=== PATIENT | male | born 1950 | race Caucasian/White ===

== ENCOUNTER 2022-07-16 09:39 | Outpatient (CLI) | payer MEDICARE, SELFPAY ==
[2022-07-16 14:50] LABS: Chloride* 102 mmol/L (96-114); Potassium* 4.6 mmol/L (3.6-5.1); Sodium* 138 mmol/L (135-149)
[2022-07-16 14:52] LABS: Cholesterol* 181 mg/dL (90-199); Creatinine* 0.7 mg/dL (0.5-1.5); Estimated Glomerular Filt Rate 100 ml/min
[2022-07-16 14:53] LABS: Blood Urea Nitrogen* 11 mg/dL (7-30); Calcium* 9.9 mg/dL (8.4-10.6); Carbon Dioxide* 29 mmol/L (20-32); Glucose* 116 mg/dL (60-115); Triglycerides* 117 mg/dL (40-149)
[2022-07-16 14:54] LABS: HDL Cholesterol* 63 mg/dL (>=40); LDL Cholesterol Calculated 95 mg/dL (<100)
[2022-07-16 15:23] LABS: PSA Screen* 0.66 ng/mL (0.10-4.00)
== END 2022-07-16 09:40 | disposition home or self-care (01) ==
PROVIDERS: PCP Family Medicine; Visit Provider Family Medicine
DX: Z00.00 Encounter for general adult medical examination without abnormal findings (principal); I10 Essential (primary) hypertension; E78.5 Hyperlipidemia, unspecified; Z12.5 Encounter for screening for malignant neoplasm of prostate
CPT/HCPCS: 80048; 80061; 84153

== ENCOUNTER 2023-06-14 07:37 | Outpatient (CLI) | payer MEDICARE, SELFPAY | END 2023-06-14 07:38 | disposition home or self-care (01) | LOC: AMB 06-16 01:36 | PROVIDERS: PCP Family Medicine; Visit Provider Internal Medicine | DX: R42 Dizziness and giddiness (principal); F12.10 Cannabis abuse, uncomplicated | CPT/HCPCS: A0425; A0427 ==

== ENCOUNTER 2023-06-14 08:15 | Emergency (ER) | payer MEDICARE, SELFPAY ==
[2023-06-14] VITALS (7 sets, daily range): BP systolic 126–136; BP diastolic 63–73; PULSE 63–99; RESP 16–18; TEMP 36.2; O2SAT 99–100
--- NOTE | 2023-06-14 08:32 | ED.GENADULT ---
HPI - General Adult General Time Seen by Provider: 08:32 Date Seen: 06/14/23 Chief complaint: Dizziness/Vertigo Stated complaint: overdose Time Seen by Provider: 06/14/23 08:30 History of Present Illness HPI narrative: This is a pleasant 72-year-old male with a history of hypertension dyslipidemia brought to the ER today by EMS for hypotension, dizziness, syncope, and probable THC overdose. History from paramedics is that yesterday afternoon / evening he was golfing with friends and did consume some alcohol. He had perhaps 6 alcoholic beverages, which is more than normal for him, and also two THC gummies (paramedics report each gummy was 250 mg- totaling 500 mg. Later, after the patient's arrived, she brought the bottle of gummies. Labeling is a bit unclear, but we think each come the probably contains 12.5 mg of delta 9 THC, therefore ingestion would have been 25 mg, not 500. According to an Internet search, it looks like each, contains 12.5 mg for a total of 250 mg in the bottle). at this point we believe he ingested 25 mg of delta 9 THC Yesterday evening. When the patient got up this morning he was feeling unsteady. He was sitting on a counter and apparently slumped over. He was held up by his family. He did not fall. He did not have any chest pain, headache, focal neurologic symptoms. He was just dizzy and unsteady. He was hypotensive when paramedics 1st arrived at 80s/ 50s. he was pale, mildly sweaty. No other complaints. They established an IV and if administered part of a 5 her mg saline bolus. Subsequent blood pressures have come up to normal up to 113/60. He is Now pinker and looking better. He still has no complaints. History from the patient corroborates. Yesterday he had friends from out of town visiting. They were celebrating. He was golfing. He did have about 6 beers which is more than he would normally consume. He did take 2 gummies, which he got from his son-in-law. It he recalls feeling fairly intoxicated when he went to bed last night. He was not drinking much water. He thinks he slept well. He got up this morning was able to get dressed and walked around the house little. He felt a bit unsteady. He recalls sitting at the counter and then getting very drowsy/ lightheaded. He does not recall what happened next. He does not have any other symptoms. No chest pain. No palpitations. No headache. No nausea. He has perhaps a very mild headache which he thinks might be because he slept wrong, or possibly from hangover. notes that he was at the counter and that he looked pale and then laid his head down. She initially thought he might be joking, but then realized he was truly unresponsive. She and another family member helped the patient up on his stool so he did not fall. They activated 911. She corroborates the alcohol and THC ingestion then brought a bottle. The bottle is torch delta 9 THC gummies. It lists that 250 mg of delta 9 THC is present and that there 20, he is per the bottle. The living was unclear whether not each gummy contains 200 mg or if all the gummies in the bottle together total 200 mg. No other ingestions or drugs. He normally takes lisinopril and simvastatin. No medication allergies. Related Data Home Medications Medication Instructions Recorded Confirmed aspirin 81 mg tablet,delayed 81 mg PO .EVERY OTHER DAY 07/16/22 06/14/23 release (Adult Aspirin Regimen) Previous Rx's Medication Instructions Recorded lisinopril 20 mg tablet 20 mg PO DAILY #90 tabs 07/16/22 simvastatin 80 mg tablet 80 mg PO .Bedtime #90 tabs 07/16/22 Allergies Allergy/AdvReac Type Severity Reaction Status Date / Time No Known Allergies Allergy Unknown Verified 06/14/23 08:39 Review of Systems Narrative: Negative [facility] Medical History Adhesive capsulitis of right shoulder Surgical History History of tonsillectomy (06/09/09) History of umbilical hernia repair (06/09/09) S/P eye surgery S/P orchiopexy Social History Smoking Status: Never smoker Exam Narrative: Exam Narrative: Constitutional: Appears well-developed and well-nourished. Alert. Conversant. Non toxic. arrives by EMS. IV in place and left AC. Most of a 500 mL saline bag has infused. Skin is pink. He is able to move himself from the EMS gurney onto his ER cot. He is cooperative with exam. At times he has a mildly vague historian, which could be consistent with THC or alcohol intoxication. HENT: Head: Atraumatic. Nose: Nose normal. Mouth/Throat: Oral mucosa is clear and moist. no trismus. Pharynx normal. Tonsils symmetric. No tonsillar enlargement, erythema, or exudate. Eyes: Conjunctivae normal. EOM normal. Pupils equal, round, and reactive to light. No scleral icterus. Neck: Normal range of motion. Neck supple. No tracheal deviation present. Cardiovascular: Normal rate, regular rhythm. No gallop. No friction rub. No murmur heard. Symmetric radial artery pulses Pulmonary/Chest: Effort normal. No stridor. No respiratory distress. No wheezes. No rales. No rhonchi . No tenderness. Abdominal: Soft. Bowel sounds normal. No distension. No mass. No tenderness. No rebound. No guarding. Musculoskeletal: RUE: Normal range of motion. No tenderness. No deformity LUE: Normal range of motion. No tenderness. No deformity RLE: Normal range of motion. No edema. No tenderness. No deformity LLE: Normal range of motion. No edema. No tenderness. No deformity Lymph: No cervical adenopathy. Mental status normal. Attention normal. Alert and oriented x3. GCS 15. Memory normal. Speech fluent. Cognition normal. Cranial Nerves intact II-XII except I did not formally test gag or visual acuity. EOMI. Palate elevates symmetrically and tongue protrudes in the midline. Strength: 5/5 trapezius on the right and left 5/5 deltoid on the right and left 5/5 biceps on the right and left 5/5 triceps on the right and left 5/5 [employer] on the right and left 5/5 thumb opposition on the right and left 5/5 finger abduction on the right and left 5/5 hip flexors (L3) on the right and left 5/5 quadriceps (L4) on the right and left 5/5 tibialis anterior on the right and left 5/5 EHL (L5) on the right and left 5/5 gastrocnemius (S1) on the right and left 5/5 hamstring on the right and left Sensation intact to light touch in both upper extremities (C4-T1) Sensation intact to light touch in Both lower extremities (L4-S1). Finger to nose and coordination normal. Gait Not assessed due to history Of syncope/ near syncope. Assess after IV fluid bolus complete. Skin: Skin is warm and dry. No rash noted. No pallor. Normal capillary refill. Psychiatric: Normal mood. Normal affect. Const: Vital Signs, click to edit/add: Vital Signs - 24 hr 06/14/23 08:27 06/14/23 08:30 06/14/23 09:00 Temperature 97.1 F L Pulse Rate [Right Pulse Oximeter] 99 74 64 Respiratory Rate 18 16 16 Blood Pressure [Ri ght Upper Arm] 131/73 133/68 126/68 Pulse Oximetry 99 100 100 Oxygen Delivery Me thod Room Air Room Air Room Air 06/14/23 09:30 Temperature Pulse Rate [Right Pulse Oximeter] 63 Respiratory Rate 16 Blood Pressure [Ri ght Upper Arm] 130/63 Pulse Oximetry 100 Oxygen Delivery Me thod Room Air Course Course Hospital Course: Recheck-doing well. Completed 1 L of IV fluids. Blood pressure stable. Feeling asymptomatic while resting in bed. Initial lactic acid mildly elevated at 2.1. Suspect dehydration. Will recheck. Other labs reassuring. Patient and updated. Recheck-2nd lactic acid improved down to normal-1.2. Recheck the patient he remains hemodynamically stable. Will p.o. challenge with juice and crackers. Recheck- doing well after p.o. challenge. Feels better. Ambulates easily under his own power in hallway. No lightheadedness or dizziness. No ataxia. Went to the bathroom and produced clear/light yellow urine. Feeling better. He and his are comfortable discharging to home. Vital Signs Vital signs: Initial Vital Signs Temperature 97.1 F L 06/14/23 08:27 Temperature Source Temporal Artery Scan 06/14/23 08:27 Pulse Rate 99 06/14/23 08:27 Respiratory Rate 18 06/14/23 08:27 Blood Pressure 131/73 06/14/23 08:27 Blood Pressure Mean 92 06/14/23 08:27 Blood Pressure Position Sitting 06/14/23 08:27 Pulse Oximetry 99 06/14/23 08:27 Oxygen Delivery Method Room Air 06/14/23 08:27 Vital Signs Temperature 97.1 F L 06/14/23 08:27 Pulse Rate 99 06/14/23 08:27 Respiratory Rate 18 06/14/23 08:27 Blood Pressure 131/73 06/14/23 08:27 Pulse Oximetry 99 06/14/23 08:27 Oxygen Delivery Method Room Air 06/14/23 08:27 Temperature 97.1 F L 06/14/23 08:27 Pulse Rate 63 06/14/23 09:30 Respiratory Rate 16 06/14/23 09:30 Blood Pressure 130/63 06/14/23 09:30 Pulse Oximetry 100 06/14/23 09:30 Oxygen Delivery Method Room Air 06/14/23 09:30 Medical Decision Making MDM Narrative Medical decision making narrative: This patient presents for evaluation of a syncopal event. It occurred this morning when he was sitting at the kitchen table. He had actually had out of character excess alcohol consumption last night and ingestion of to THC gummies (which he has never taken before). Clinical presentation is most consistent with symptoms/side effects of his THC gummies and probably effects of dehydration from alcohol consumption yesterday while golfing and inadequate oral hydration. He was hypotensive when EMS picked him up but normotensive after receiving part of a 500 mL bolus while in route to the ER. He remained normotensive throughout his stay here in the ER. A broad differential was considered. History provided suggests a benign cause of syncope. No murmurs . Initial ECG shows normal sinus rhythm and no dysrhythmogenic abnormality such as WPW, prolonged QT, Brugada syndrome, and no ischemia. No symptoms/findings concerning for cardiac ischemia or ACS . No headache or other neurologic symptoms to suggest subarachnoid , stroke . He had a very mild headache (not sudden onset) all morning long since he woke up, likely related to dehydration/alcohol. Initial lactic acid was mildly elevated 2.1, improved down to 1.2 after IV fluids, further evidence that the patient probably had dehydration. At this point we do not think he needs advanced imaging with CT. No reported seizure-like activity or postictal phase. 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 A broad differential diagnosis was considered including SVT, Atrial fibrillation, ventricular arrhythmia, thyroid disease, acute electrolyte abnormality, drugs/medications, medication side effect, anemia, heart disease, PE, among others. The workup and exam here in ED shows low risk for dangerous cause of the patient's syncope, and no risks factors to warrant admission. Clinical judgement suggests that supportive outpatient management is indicated. Recommend follow up with primary care. Questions answered and return precautions given Lab Data Labs: Lab Results 06/14/23 06/14/23 Range/Units 08:40 09:50 WBC 5.98 (4.50-11.00) K/uL RBC 4.02 L (4.30-5.90) m/uL Hgb 12.4 L (13.5-17.5) gm/dL Hct 36.9 L (37.0-53.0) % MCV 92 (80-100) fL MCH 31 (26-34) pg MCHC 34 (32-36) gm/dL RDW Coeff of Yelitza 12.1 (11.5-15.5) % Plt Count 193 (140-440) K/uL Neut % (Auto) 57.1 (42.0-72.0) % Lymph % (Auto) 32.4 (20-44) % [place] % (Auto) 8.4 (0.0-11.0) % Eos % (Auto) 1.7 (0.0-7.0) % Baso % (Auto) 0.2 (0.0-3.0) % Neut # (Auto) 3.42 (1.7-7.0) K/uL Lymph # (Auto) 1.94 (0.90-2.90) K/uL [place] # (Auto) 0.50 (0.00-0.90) K/UL Eos # (Auto) 0.10 (0.00-0.50) K/uL Baso # (Auto) 0.01 (0.00-0.30) K/uL Abs Immat Gran (auto) 0.01 (0.00-0.30) K/uL Imm/Tot Granulo (auto) 0.2 % Sodium 136 (135-149) mmol/L Potassium 3.7 (3.6-5.1) mmol/L Chloride 103 (96-114) mmol/L Carbon Dioxide 25 (20-32) mmol/L Anion Gap 8 (7-15) mEq/L BUN 13 (7-30) mg/dL Creatinine 0.8 (0.5-1.5) mg/dL Estimated GFR 95 ml/min Glucose 98 (60-115) mg/dL Lactate 2.1 H 1.2 (0.5-1.9) mmol/L Calcium 8.2 L (8.4-10.6) mg/dL Total Bilirubin 0.6 (0.1-1.5) mg/dL AST 28 (12-35) U/L ALT 19 (4-50) U/L Alkaline Phosphatase 67 (40-150) U/L Troponin I < 0.01 L (0.01-0.04) ng/mL Total Protein 6.1 (6.0-8.3) g/dL Albumin 3.8 (3.3-5.0) g/dL Ethyl Alcohol 0.02 (0.01-0.03) % ECG Data Attestation: I personally reviewed and interpreted this ECG as follows: Interpretation: Normal sinus rhythm rate 63 NJ 156 QRS axis normal axis. No pathologic Q- Waves ST segment/T wave: no ST segment elevation or depression. No ischemia. QTc: 456 Discharge Plan Discharge Clinical Impression: Syncope, Dehydration Patient Disposition: Home, Self-Care Condition: Stable Instructions: Dehydration (ED), Near Syncope (ED) Additional Instructions: As we discussed, please come back to ER right away if you of any concerning symptoms such as chest pain, palpitations, trouble breathing, more episodes of dizziness, lightheadedness, or fainting. Prescriptions: No Action aspirin [Adult Aspirin Regimen] 81 mg tablet,delayed release (DR/EC) 81 mg PO .EVERY OTHER DAY lisinopril 20 mg tablet 20 mg PO DAILY Qty: 90 3RF simvastatin 80 mg tablet 80 mg PO .Bedtime Qty: 90 3RF Follow Up/Referrals: Cameron Cordova MD [Primary Care Provider] - Stand Alone Forms: [employer] Info Instructions
[2023-06-14] MEDS: IBUPROFEN 600 MG TABLET PO (08:40)
[2023-06-14] MEDS: 0.9 % SODIUM CHLORIDE 1000 ml 1,000 ML IV (08:40)
[2023-06-14] MEDS: ONDANSETRON 2 MG/ML inj 4 MG IVP (08:40)
[2023-06-14 08:53] LABS: Lactate* 2.1 mmol/L (0.5-1.9)
[2023-06-14 08:59] LABS: Basophils Absolute Auto 0.01 K/uL (0.00-0.30); Basophils Percent Auto 0.2 % (0.0-3.0); Eosinophils Percent Auto 1.7 % (0.0-7.0); Hematocrit 36.9 % (37.0-53.0); Hemoglobin* 12.4 gm/dL (13.5-17.5); Immature Granulocytes Abs Auto 0.01 K/uL (0.00-0.30); Immature Granulocytes Pct Auto 0.2 %; Lymphocytes Absolute Auto 1.94 K/uL (0.90-2.90); Lymphocytes Percent Auto 32.4 % (20-44); Mean Corpuscular HGB Conc 34 gm/dL (32-36); Mean Corpuscular Hemoglobin 31 pg (26-34); Mean Corpuscular Volume 92 fL (80-100); Monocytes Percent Auto 8.4 % (0.0-11.0); Neutrophils Absolute Auto 3.42 K/uL (1.7-7.0); Neutrophils Percent Auto 57.1 % (42.0-72.0); Platelet Count* 193 K/uL (140-440); RDW Coefficient of Variation % 12.1 % (11.5-15.5); Red Blood Count 4.02 m/uL (4.30-5.90); White Blood Count* 5.98 K/uL (4.50-11.00)
[2023-06-14 09:01] LABS: Slide Review Reflex No
[2023-06-14 09:13] LABS: Albumin* 3.8 g/dL (3.3-5.0); Chloride* 103 mmol/L (96-114); Sodium* 136 mmol/L (135-149)
[2023-06-14 09:14] LABS: Potassium* 3.7 mmol/L (3.6-5.1)
[2023-06-14 09:16] LABS: Alanine Aminotransferase* 19 U/L (4-50); Alkaline Phosphatase* 67 U/L (40-150); Anion Gap 8 mEq/L (7-15); Aspartate Amino Transferase* 28 U/L (12-35); Bilirubin Total* 0.6 mg/dL (0.1-1.5); Blood Urea Nitrogen* 13 mg/dL (7-30); Carbon Dioxide* 25 mmol/L (20-32); Creatinine* 0.8 mg/dL (0.5-1.5); Estimated Glomerular Filt Rate 95 ml/min; Glucose* 98 mg/dL (60-115); Total Protein* 6.1 g/dL (6.0-8.3)
[2023-06-14 09:17] LABS: Calcium* 8.2 mg/dL (8.4-10.6); Ethanol* 0.02 % (0.01-0.03)
[2023-06-14 09:29] LABS: Troponin I* < 0.01 ng/mL (0.01-0.04)
[2023-06-14 09:54] LABS: Lactate* 1.2 mmol/L (0.5-1.9)
== END 2023-06-14 11:38 | disposition home or self-care (01) ==
PROVIDERS: Emergency Provider Emergency Medicine; PCP Family Medicine
DX: R55 Syncope and collapse (principal); E86.0 Dehydration
CPT/HCPCS: 36415; 80053; 82077; 83605; 83690; 84484; 85025; 93005; 96361; 96374; 96375; 99284; A9270; J2405; J7030

== ENCOUNTER 2023-07-30 09:54 | Outpatient (CLI) | payer MEDICARE, SELFPAY | END 2023-07-30 09:55 | disposition home or self-care (01) | PROVIDERS: PCP Family Medicine; Visit Provider Family Medicine | DX: Z00.00 Encounter for general adult medical examination without abnormal findings (principal); I10 Essential (primary) hypertension; E78.5 Hyperlipidemia, unspecified; Z12.5 Encounter for screening for malignant neoplasm of prostate | CPT/HCPCS: 80048; 80061; 84153 ==

== ENCOUNTER 2024-03-05 08:19 | Outpatient (CLI) | payer MEDICARE, SELFPAY | END 2024-03-05 08:20 | disposition home or self-care (01) | LOC: LKVREF 08:21 | PROVIDERS: PCP Family Medicine; Visit Provider Family Medicine | DX: R63.4 Abnormal weight loss (principal); I10 Essential (primary) hypertension | CPT/HCPCS: 80053 ==

== ENCOUNTER 2024-05-11 10:11 | Outpatient (CLI) | payer MEDICARE, SELFPAY ==
--- NOTE | 2024-05-11 11:15 | W.ANESCHARGE ---
Anesthesia Charges Start Date/Time Anesthesia Start Date: 05/11/24 Anesthesia Start Time: 10:51 Stop Date/Time Anesthesia Stop Date: 05/11/24 Anesthesia Stop Time: 11:27 Summary Extremes of Age - Over 70 or under 1: MDA
--- NOTE | 2024-05-11 11:27 | W.ANESCHARGE ---
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
== END 2024-05-11 10:12 | disposition home or self-care (01) ==
LOC: OP CLINIC 10:11
PROVIDERS: PCP Family Medicine; Visit Provider Surgery
DX: Z12.11 Encounter for screening for malignant neoplasm of colon (principal); K63.5 Polyp of colon; K57.30 Diverticulosis of large intestine without perforation or abscess without bleeding
CPT/HCPCS: 00811; 45385; 88305; 99100; J2704

== ENCOUNTER 2024-07-14 08:38 | Outpatient (CLI) | payer MEDICARE, SELFPAY | END 2024-07-14 08:39 | disposition home or self-care (01) | PROVIDERS: PCP Family Medicine; Visit Provider Family Medicine | DX: E78.00 Pure hypercholesterolemia, unspecified (principal); R63.4 Abnormal weight loss; M62.50 Muscle wasting and atrophy, not elsewhere classified, unspecified site; Z12.71 Encounter for screening for malignant neoplasm of testis; Z13.89 Encounter for screening for other disorder | CPT/HCPCS: 80061; 82105; 84403; 84443; 84704 ==

== ENCOUNTER 2025-02-28 17:51 | Outpatient (CLI) | payer MEDICARE, SELFPAY ==
--- NOTE | 2025-02-28 18:15 | CRLHL7_ITS ---
For Patients: As a result of the Century Cures Act, medical imaging exams and procedure reports are released immediately into your electronic medical record. You may view this report before your referring provider. If you have questions, please contact your health care provider. Indication: LOW BACK PAIN Technique: Noncontrast sagittal and axial T1, T2, and sagittal STIR sequences are provided. Comparison: Lumbar radiographs 02/21/2025 Findings : There are 5 lumbar type vertebral bodies. No fractures. No prevertebral or paraspinal edema. No aggressive osseous lesions. Mild retrolisthesis at L3-4. The conus medullaris is normal in signal and located at T12-L1. Right renal cysts. Sacroiliac joint degenerative changes. Mild atrophy of paraspinal muscles. T12-L1: No significant spinal canal stenosis or neural foraminal narrowing. Normal disc and facet joints. L1-2: Disc desiccation. Disc bulge eccentric to the right. Mild facet arthrosis. No significant spinal canal stenosis or neural foraminal narrowing. L2-3: Modic type 2 endplate degenerative changes. Circumferential disc bulge results in mild subarticular recess stenosis bilaterally. No neural foramen narrowing. L3-4: There is 4 mm retrolisthesis. Uncovering of the disc with central disc protrusion and bilateral facet arthrosis results in moderate left and mild right subarticular recess stenosis. Mild neural foramen narrowing bilaterally. L4-5: Small central disc protrusion. Mild facet arthrosis. Minimal indentation of the thecal sac and mild right subarticular recess narrowing. Mild right neural foraminal narrowing. L5-S1: Modic type 1 endplate degenerative changes mild disc bulge with central disc protrusion. Moderate right and mild left facet arthrosis. Mild subarticular recess narrowing without nerve impingement. No neural foramen narrowing. Impression: 1. No acute osseous or ligamentous abnormality. Degenerative retrolisthesis at L3-4. 2. Multilevel low-grade spondylosis. Moderate left and mild right subarticular recess stenosis at L3-4, mild right subarticular recess stenosis L4-5: Mild bilateral subarticular recess stenosis at L5-S1 and L2-3. 3. No significant neural foramen narrowing. Dictated by Killian Ruby MD @ 03/01/2025 9:13:51 AM (Electronically Signed)
== END 2025-02-28 17:52 | disposition home or self-care (01) ==
LOC: MRI 17:51
PROVIDERS: PCP Family Medicine; Visit Provider Family Medicine
DX: M54.50 Low back pain, unspecified (principal); M47.896 Other spondylosis, lumbar region; M51.369 Other intervertebral disc degeneration, lumbar region without mention of lumbar back pain or lower extremity pain; M48.07 Spinal stenosis, lumbosacral region; G89.29 Other chronic pain
CPT/HCPCS: 72148

== ENCOUNTER 2025-03-28 10:38 | Outpatient (CLI) | payer MEDICARE, SELFPAY ==
--- NOTE | 2025-03-28 11:00 | CRLHL7_ITS ---
For Patients: As a result of the Century Cures Act, medical imaging exams and procedure reports are released immediately into your electronic medical record. You may view this report before your referring provider. If you have questions, please contact your health care provider. Indication: Abnormal weight loss Technique: CT Chest/Abd/Pelvis W/ 95CC [id number] intravenous contrast Please note that all CT scans at this facility use dose modulation, iterative reconstruction, and/or weight-based dosing when appropriate to reduce radiation dose to as low as reasonably achievable. Comparison: None Findings: In the chest, the visualized thyroid gland is within normal limits. No enlarged mediastinal, hilar or axillary lymph nodes. Calcified right infrahilar lymph nodes are noted related to prior granulomatous disease. No infiltrate or edema. No effusion or pneumothorax. Mild peripheral fibrotic change within the mid and lower lung zone distributions with thickening of the interlobular septa, [id number]. Calcified granulomas within the right lower lobe are present. Tiny bilateral calcified and noncalcified nodules are present elsewhere bilaterally measuring 2 millimeters or less. Pleural-parenchymal scarring in the right lung apex with small subpleural nodules noted. No fracture. Bridging osteophyte formation. In the abdomen, there is no intrahepatic mass. Incidental small calcified granuloma is present within the liver. Calcified splenic granulomas are noted. No adrenal nodule. Simple cyst right kidney measures 2.9 cm. No hydronephrosis. Pancreas normal. Atherosclerotic changes. No hiatal hernia. Gallbladder unremarkable. No enlarged mesenteric or retroperitoneal adenopathy. In the pelvis, the bladder is normal. Prostate calcifications are present. Sigmoid diverticulosis. No diverticulitis. No bowel obstruction, free air, free fluid or abscess. Normal appendix. No pelvic or inguinal adenopathy. Impression: Sigmoid diverticulosis. No diverticulitis or bowel obstruction. Incidental simple right renal cyst. Sequela of granulomatous disease. No acute inflammation. No adenopathy. Mild bilateral pulmonary fibrosis. No suspicious pulmonary nodule. Please note that all CT scans at this facility use dose modulation, iterative reconstruction, and/or weight-based dosing when appropriate to reduce radiation dose to as low as reasonably achievable. Dictated by Killian Conn MD @ 03/29/2025 9:55:27 AM (Electronically Signed)
[2025-03-28 11:15] LABS: Creatinine* 0.7 mg/dL (0.5-1.5); Estimated Glomerular Filt Rate 98 ml/min
== END 2025-03-28 10:39 | disposition home or self-care (01) ==
PROVIDERS: PCP Family Medicine; Visit Provider Family Medicine
DX: R63.4 Abnormal weight loss (principal); K57.30 Diverticulosis of large intestine without perforation or abscess without bleeding; N28.1 Cyst of kidney, acquired; J84.10 Pulmonary fibrosis, unspecified
CPT/HCPCS: 36415; 71260; 74177; 82565; Q9967

== ENCOUNTER 2025-08-05 08:30 | Outpatient (CLI) | payer MEDICARE, SELFPAY | END 2025-08-05 08:31 | disposition home or self-care (01) | PROVIDERS: PCP Family Medicine; Visit Provider Family Medicine | DX: Z01.818 Encounter for other preprocedural examination (principal); E78.00 Pure hypercholesterolemia, unspecified; Z12.5 Encounter for screening for malignant neoplasm of prostate | CPT/HCPCS: 80048; 80061; G0103 ==